=== PATIENT | female | born 1975 | race Caucasian/White ===

== ENCOUNTER 2017-12-05 19:41 | Emergency (ER) | payer OTHER ==
[~2017-12-05] VITALS: Ht 154.9 cm; Wt 70.8 kg
[~2017-12-05 19:41] MED LIST: IND10 PO
[2017-12-05 19:59] VITALS: Ht 154.9 cm; Wt 70.8 kg
[2017-12-05 23:06] VITALS: BP 124/66
== END 2017-12-05 23:06 | disposition home or self-care (01) ==
LOC: ED 19:41
DX: R10.9 Unspecified abdominal pain (principal); J45.909 Unspecified asthma, uncomplicated; M32.9 Systemic lupus erythematosus, unspecified; Z91.041 Radiographic dye allergy status
CPT/HCPCS: J0500

== ENCOUNTER 2019-12-23 17:39 | Emergency (ER) | payer OTHER ==
[~2019-12-23] VITALS: Ht 154.9 cm; Wt 66.2 kg
[2019-12-23 17:56] VITALS: Ht 154.9 cm; Wt 66.2 kg
[2019-12-23 18:50] VITALS: BP 120/40
== END 2019-12-23 18:50 | disposition home or self-care (01) ==
LOC: ED 17:39
DX: M54.41 Lumbago with sciatica, right side (principal); J45.909 Unspecified asthma, uncomplicated; Z88.8 Allergy status to other drugs, medicaments and biological substances

== ENCOUNTER 2020-02-18 16:47 | Emergency (ER) | payer OTHER, SELFPAY ==
[~2020-02-18] VITALS: Ht 154.9 cm; Wt 63.5 kg
[2020-02-18 16:55] VITALS: BP 115/76; Ht 154.9 cm; Wt 63.5 kg
== END 2020-02-18 18:04 | disposition home or self-care (01) ==
LOC: ED 16:47
DX: Z20.828 Contact with and (suspected) exposure to other viral communicable diseases (principal); J45.909 Unspecified asthma, uncomplicated; Z88.8 Allergy status to other drugs, medicaments and biological substances
CPT/HCPCS: Q0092